=== PATIENT | male | born 1930 | race Caucasian/White ===

== ENCOUNTER 2017-04-30 07:51 | Inpatient (IN) | payer MEDICARE, MEDICAID ==
[~2017-04-30] VITALS: Ht 188 cm; Wt 84.8 kg
[~2017-04-30 07:51] MED LIST: FERR-63 PO; GABA-531 PO; TAMS0.4C31 PO; TRIA1CAP2 PO; VITAMIN
[2017-04-30] MEDS ORDERED: INSULIN (07:54)
[2017-04-30] MEDS ORDERED: COR3 PO (07:54)
[2017-04-30] MEDS ORDERED: GABA300C PO (07:54)
[2017-04-30 09:16] LABS: BASOPHILS % 1.1 % (0.0-2.0); EOSINOPHILS % 4.3 % (0.0-5.0); HEMATOCRIT. 38.2 % (42.0-52.0); HEMOGLOBIN. 12.4 g/dL (14.0-18.0); LYMPHOCYTES % 16.6 % (20.0-50.0); MEAN CORPUSCULAR HEMOGLOBIN 26.9 pg (28.0-32.0); MEAN CORPUSCULAR VOLUME 82.4 fL (80.0-94.0); MEAN PLATELET VOLUME 7.8 fl (7.4-10.4); MONOCYTES % 11.9 % (2.0-8.0); NEUTROPHILS % 66.1 % (40.0-76.0); PLATELET 419 x1000/uL (130-400); RED BLOOD CELL COUNT 4.63 mill/uL (4.7-6.1); RED CELL DISTRIBUTION WIDTH 15.3 % (11.6-14.6)
[2017-04-30 09:25] LABS: INR 1.2; PROTHROMBIN TIME 12.1 sec
[2017-04-30 09:32] LABS: CARBON DIOXIDE 31 mEq/L (21-32); CHLORIDE 96 mEq/L (98-107)
[2017-04-30] MEDS ORDERED: ACETAMINOPHEN 650MG/20.3ML UDC GT PRN (13:00)
[2017-04-30] MEDS ORDERED: ONDANSETRON HCL 4MG/2ML VIAL IV PRN (13:00)
[2017-04-30] MEDS ORDERED: HYDROCODONE/ACETAMINOPHEN 5/325MG TABLET PO PRN (13:00)
[2017-04-30] MEDS ORDERED: DOCUSATE SODIUM 100MG CAPSULE PO PRN (13:00)
[2017-04-30] MEDS ORDERED: IPRATROPIUM/ALBUTEROL 0.5-3(2.5)MG/3ML NEB INH PRN (13:00)
[2017-04-30] MEDS ORDERED: INSULIN SLIDING (13:21)
[2017-04-30] MEDS ORDERED: MULT-1146 PO (13:24)
[2017-04-30] MEDS ORDERED: MAGN400O4 PO (13:24)
[2017-04-30] MEDS ORDERED: CEPH-569 PO (13:24)
[2017-04-30] MEDS ORDERED: ACET-2178 PO (13:31)
[2017-04-30] MEDS ORDERED: DOCU-155 RC (13:31)
[2017-04-30] MEDS ORDERED: SULF1TAB48 PO (13:31)
[2017-04-30] MEDS ORDERED: SOD133EN RC (13:31)
[2017-04-30] MEDS ORDERED: ALBU2.5V13 NEB (13:31)
[2017-04-30 14:09] LABS: CLARITY URINE TURBID (CLEAR); COLOR URINE YELLOW (YELLOW); GLUCOSE URINE NEGATIVE (NEGATIVE); KETONES URINE NEGATIVE (NEGATIVE); LEUKOCYTE ESTERASE URINE NEGATIVE (NEGATIVE); NITRITE URINE NEGATIVE (NEGATIVE); OCCULT BLOOD URINE NEGATIVE (NEGATIVE); PH URINE 7.5 (4.5-8.0); PROTEIN URINE NEGATIVE (NEGATIVE); SPECIFIC GRAVITY URINE 1.015 (1.005-1.030)
[2017-04-30 15:30] VITALS: BP 102/84
[2017-04-30 16:00] VITALS: BP 98/64
[2017-04-30] MEDS ORDERED: DILTIAZEM HCL 5MG/ML 5ML VIAL IV PRN (16:15)
[2017-04-30] MEDS: ENOXAPARIN 80MG/0.8ML SYR SUBCUT SCH (16:30)
[2017-04-30] MEDS: CARVEDILOL 3.125 MG TABLET PO SCH (17:00)
[2017-04-30] MEDS ORDERED: BISACODYL 10MG SUPP PR PRN (17:15)
[2017-04-30] MEDS ORDERED: ACETAMINOPHEN 325MG TABLET PO PRN ×2 (17:15)
[2017-04-30] MEDS ORDERED: DEXTROSE 50% WATER 50ML SYRINGE IV PRN (17:15)
[2017-04-30] MEDS ORDERED: MAGNESIUM HYDROXIDE 400MG/5ML 30ML UDC PO PRN (17:15)
[2017-04-30] MEDS: INSULIN LISPRO 100 UNITS/ML SUBCUT SCH ×2 (18:10→20:47)
[2017-04-30 20:00] VITALS: BP 100/60
[2017-04-30] MEDS: BLOOD SUGAR DIAGNOSTIC STRIP TEST SCH (20:47)
[2017-04-30] MEDS ORDERED: ZOLPIDEM TARTRATE 5MG TABLET PO PRN (21:00)
[2017-04-30] MEDS: ALBUTEROL (0.083%) 2.5MG/3ML NEB HHN SCH (23:47)
[2017-05-01] VITALS: BP 98/56
[2017-05-01] MEDS: ALBUTEROL (0.083%) 2.5MG/3ML NEB HHN SCH ×3 (03:35→20:57)
[2017-05-01 04:00] VITALS: BP 98/63
[2017-05-01] MEDS: OMEPRAZOLE 20MG CAPSULE EXTENDED RELEASE PO SCH (05:59)
[2017-05-01] MEDS: ENOXAPARIN 80MG/0.8ML SYR SUBCUT SCH (06:00)
[2017-05-01] MEDS: INSULIN LISPRO 100 UNITS/ML SUBCUT SCH ×4 (06:03→21:00)
[2017-05-01] MEDS: BLOOD SUGAR DIAGNOSTIC STRIP TEST SCH ×4 (06:03→20:58)
[2017-05-01 07:09] LABS: BASOPHILS % 1.2 % (0.0-2.0); EOSINOPHILS % 5.3 % (0.0-5.0); HEMATOCRIT. 36.3 % (42.0-52.0); HEMOGLOBIN. 12.2 g/dL (14.0-18.0); MEAN CORPUSCULAR HEMOGLOBIN 27.5 pg (28.0-32.0); MEAN CORPUSCULAR VOLUME 81.8 fL (80.0-94.0); MEAN PLATELET VOLUME 8.2 fl (7.4-10.4); NEUTROPHILS % 56.5 % (40.0-76.0); PLATELET 399 x1000/uL (130-400); RED BLOOD CELL COUNT 4.44 mill/uL (4.7-6.1); RED CELL DISTRIBUTION WIDTH 15.4 % (11.6-14.6)
[2017-05-01 08:00] VITALS: BP 114/64
[2017-05-01] MEDS ORDERED: ACETAMINOPHEN 325MG TABLET PO PRN (08:15)
[2017-05-01] MEDS ORDERED: NA PHOS,M-B/NA PHOS,DI-BA ENEMA 118ML PR NR (10:00)
[2017-05-01] MEDS ORDERED: LACTULOSE 20G/30ML UDC PO NR (10:00)
[2017-05-01] MEDS: POLYVINYL ALCOHOL OPHTH DROPS 15ML BOTHEYE SCH ×2 (10:01→17:23)
[2017-05-01] MEDS: CARVEDILOL 3.125 MG TABLET PO SCH ×2 (10:02→17:00)
[2017-05-01] MEDS: ASCORBIC ACID 500 MG TABLET PO SCH (10:02)
[2017-05-01] MEDS: MULTIVITAMINS,THER W-MINERALS TABLET PO SCH (10:02)
[2017-05-01] MEDS: ZINC SULFATE 220 MG ( 50 ) CAPSULE PO SCH (10:02)
[2017-05-01] MEDS: GABAPENTIN 300MG CAPSULE PO SCH (10:02)
[2017-05-01 10:07] LABS: CARBON DIOXIDE 28 mEq/L (21-32); CHLORIDE 98 mEq/L (98-107)
[2017-05-01 12:00] VITALS: BP 103/52
[2017-05-01 15:55] VITALS: BP 100/63
[2017-05-01] MEDS ORDERED: NA PHOS,M-B/NA PHOS,DI-BA ENEMA 118ML PR PRN (18:00)
[2017-05-01 20:00] VITALS: BP 125/77
[2017-05-02] VITALS: BP 127/77
[2017-05-02] MEDS: ALBUTEROL (0.083%) 2.5MG/3ML NEB HHN SCH ×6 (00:36→20:25)
[2017-05-02 04:00] VITALS: BP 102/69
[2017-05-02] MEDS: BLOOD SUGAR DIAGNOSTIC STRIP TEST SCH ×4 (06:21→20:32)
[2017-05-02] MEDS: ENOXAPARIN 80MG/0.8ML SYR SUBCUT SCH ×2 (06:22→19:04)
[2017-05-02] MEDS: OMEPRAZOLE 20MG CAPSULE EXTENDED RELEASE PO SCH (06:22)
[2017-05-02] MEDS: INSULIN LISPRO 100 UNITS/ML SUBCUT SCH ×4 (06:30→20:32)
[2017-05-02 07:31] LABS: BASOPHILS % 1.3 % (0.0-2.0); EOSINOPHILS % 5.9 % (0.0-5.0); HEMATOCRIT. 36.5 % (42.0-52.0); LYMPHOCYTES % 22.3 % (20.0-50.0); MEAN CORPUSCULAR HEMOGLOBIN 27.1 pg (28.0-32.0); MEAN CORPUSCULAR VOLUME 82.3 fL (80.0-94.0); MEAN PLATELET VOLUME 7.8 fl (7.4-10.4); MONOCYTES % 14.4 % (2.0-8.0); NEUTROPHILS % 56.1 % (40.0-76.0); PLATELET 390 x1000/uL (130-400); RED BLOOD CELL COUNT 4.43 mill/uL (4.7-6.1); RED CELL DISTRIBUTION WIDTH 15.4 % (11.6-14.6)
[2017-05-02 07:37] VITALS: BP 120/60
[2017-05-02 07:54] LABS: CARBON DIOXIDE 30 mEq/L (21-32); CHLORIDE 97 mEq/L (98-107); TOTAL IRON BINDING CAPACITY 214 ug/dL (250-450)
[2017-05-02] MEDS: ASCORBIC ACID 500 MG TABLET PO SCH (09:47)
[2017-05-02] MEDS: GABAPENTIN 300MG CAPSULE PO SCH (09:47)
[2017-05-02] MEDS: CARVEDILOL 3.125 MG TABLET PO SCH ×2 (09:47→17:00)
[2017-05-02] MEDS: MULTIVITAMINS,THER W-MINERALS TABLET PO SCH (09:47)
[2017-05-02] MEDS: ZINC SULFATE 220 MG ( 50 ) CAPSULE PO SCH (09:47)
[2017-05-02] MEDS: POLYVINYL ALCOHOL OPHTH DROPS 15ML BOTHEYE SCH ×2 (09:47→17:59)
[2017-05-02 12:00] VITALS: BP 95/50
[2017-05-02] MEDS ORDERED: LIDOCAINE HCL 1% 20ML VIAL (Pyxis) INJ INFIL SCH (12:45)
[2017-05-02] MEDS: FERROUS SULFATE 300MG/5ML UDC PO SCH ×2 (13:22→17:59)
[2017-05-02 16:39] VITALS: BP 92/49
[2017-05-02 20:00] VITALS: BP 97/58
[2017-05-03] VITALS: BP 135/88
[2017-05-03] MEDS: ALBUTEROL (0.083%) 2.5MG/3ML NEB HHN SCH ×6 (00:53→20:51)
[2017-05-03 04:00] VITALS: BP 103/55
[2017-05-03] MEDS: INSULIN LISPRO 100 UNITS/ML SUBCUT SCH ×4 (06:20→21:00)
[2017-05-03] MEDS: BLOOD SUGAR DIAGNOSTIC STRIP TEST SCH ×4 (06:20→21:12)
[2017-05-03] MEDS: ENOXAPARIN 80MG/0.8ML SYR SUBCUT SCH ×2 (06:32→17:00)
[2017-05-03 08:00] VITALS: BP 101/62
[2017-05-03] MEDS: CARVEDILOL 3.125 MG TABLET PO SCH ×2 (08:51→16:57)
[2017-05-03] MEDS: ASCORBIC ACID 500 MG TABLET PO SCH (09:01)
[2017-05-03] MEDS: FAMOTIDINE 20MG TABLET PO SCH ×2 (09:01→17:00)
[2017-05-03] MEDS: GABAPENTIN 300MG CAPSULE PO SCH (09:01)
[2017-05-03] MEDS: FERROUS SULFATE 300MG/5ML UDC PO SCH ×3 (09:01→17:00)
[2017-05-03] MEDS: MULTIVITAMINS,THER W-MINERALS TABLET PO SCH (09:01)
[2017-05-03] MEDS: ZINC SULFATE 220 MG ( 50 ) CAPSULE PO SCH (09:01)
[2017-05-03] MEDS: POLYVINYL ALCOHOL OPHTH DROPS 15ML BOTHEYE SCH ×2 (09:02→17:00)
[2017-05-03] MEDS ORDERED: LACTULOSE 20G/30ML UDC PO NR (10:30)
[2017-05-03 12:00] VITALS: BP 106/61
[2017-05-03 16:00] VITALS: BP 107/70
[2017-05-03] MEDS: DOCUSATE SODIUM 100MG CAPSULE PO SCH (17:00)
[2017-05-03 20:00] VITALS: BP 121/74
[2017-05-04] VITALS: BP 115/80
[2017-05-04] MEDS: ALBUTEROL (0.083%) 2.5MG/3ML NEB HHN SCH ×4 (00:50→12:00)
[2017-05-04 04:00] VITALS: BP 103/68
[2017-05-04] MEDS: ENOXAPARIN 80MG/0.8ML SYR SUBCUT SCH (06:00)
[2017-05-04] MEDS: BLOOD SUGAR DIAGNOSTIC STRIP TEST SCH ×2 (07:08→12:03)
[2017-05-04] MEDS: INSULIN LISPRO 100 UNITS/ML SUBCUT SCH ×2 (07:08→12:16)
[2017-05-04 07:13] LABS: HEMATOCRIT. 36.3 % (42.0-52.0); HEMOGLOBIN. 12.1 g/dL (14.0-18.0); MEAN CORPUSCULAR HEMOGLOBIN 27.6 pg (28.0-32.0); MEAN CORPUSCULAR VOLUME 82.5 fL (80.0-94.0); PLATELET 427 x1000/uL (130-400); RED CELL DISTRIBUTION WIDTH 15.7 % (11.6-14.6)
[2017-05-04 08:00] VITALS: BP 100/67
[2017-05-04 08:09] LABS: CARBON DIOXIDE 29 mEq/L (21-32); CHLORIDE 96 mEq/L (98-107)
[2017-05-04] MEDS: CARVEDILOL 3.125 MG TABLET PO SCH (08:42)
[2017-05-04] MEDS: DOCUSATE SODIUM 100MG CAPSULE PO SCH (08:47)
[2017-05-04] MEDS: MULTIVITAMINS,THER W-MINERALS TABLET PO SCH (08:47)
[2017-05-04] MEDS: FAMOTIDINE 20MG TABLET PO SCH (08:47)
[2017-05-04] MEDS: GABAPENTIN 300MG CAPSULE PO SCH (08:47)
[2017-05-04] MEDS: ASCORBIC ACID 500 MG TABLET PO SCH (08:47)
[2017-05-04] MEDS: ZINC SULFATE 220 MG ( 50 ) CAPSULE PO SCH (08:47)
[2017-05-04] MEDS: FERROUS SULFATE 300MG/5ML UDC PO SCH ×2 (08:47→12:15)
[2017-05-04] MEDS: POLYVINYL ALCOHOL OPHTH DROPS 15ML BOTHEYE SCH (08:51)
[2017-05-04 12:00] VITALS: BP 122/71
[2017-05-04 12:52] VITALS: BP 122/71
[2017-05-04 15:57] LABS: PLATELET ESTIMATE SLIGHTLY INCREASED
[2017-05-04 16:00] VITALS: BP 101/92
[2017-05-04] MEDS ORDERED: RIVAROXABAN 15 MG TABLET PO SCH (17:00)
== END 2017-05-04 17:00 | DRG 593 ==
LOC: ER 08:09 → 8WST 11:08 → EDBEDREQSVC 11:58 → EDBEDREQ 11:58 → ENRESERV 13:42 → 8WST 16:03
PROVIDERS: ADMIT Family Medicine Adult Medicine; ATTEND Family Medicine Adult Medicine
DX: L89.152 Pressure ulcer of sacral region, stage 2 (principal); E87.1 Hypo-osmolality and hyponatremia; E44.0 Moderate protein-calorie malnutrition; I50.30 Unspecified diastolic (congestive) heart failure; R65.10 Systemic inflammatory response syndrome (SIRS) of non-infectious origin without acute organ dysfunction; L08.9 Local infection of the skin and subcutaneous tissue, unspecified; D50.9 Iron deficiency anemia, unspecified; E11.51 Type 2 diabetes mellitus with diabetic peripheral angiopathy without gangrene; M81.0 Age-related osteoporosis without current pathological fracture; I11.0 Hypertensive heart disease with heart failure; Z53.29 Procedure and treatment not carried out because of patient's decision for other reasons; I48.2 Chronic atrial fibrillation; Z88.0 Allergy status to penicillin; Z68.24 Body mass index [BMI] 24.0-24.9, adult; Z79.899 Other long term (current) drug therapy; Z79.4 Long term (current) use of insulin; Z79.01 Long term (current) use of anticoagulants
CPT/HCPCS: 36415; 72195; 80048; 80053; 81001; 82962; 83540; 83550; 83735; 85025; 85610; 85730; 87086; 93005; 93970; 94640; 99285; A6261; J1650; J1815; J3490; J7611; J7620

== ENCOUNTER 2017-05-21 14:05 | Inpatient (IN) | payer MEDICARE, MEDICAID ==
[~2017-05-21] VITALS: Ht 182.9 cm; Wt 86.7 kg
[~2017-05-21 14:05] MED LIST changes: +ACET-2178 PO; +ALBU2.5V13 NEB; +CEPH-569 PO; +COR3 PO; +DOCU-155 RC; -FERR-63 PO; -GABA-531 PO; +GABA300C PO; +INSULIN SLIDING; +MAGN400O4 PO; +MULT-1146 PO; +SOD133EN RC; +SULF1TAB48 PO; -TAMS0.4C31 PO; -TRIA1CAP2 PO; -VITAMIN
[2017-05-21] MEDS ORDERED: VANCOMYCIN 1 G PREMIX 200 ML IV SCH (16:15)
[2017-05-21] MEDS ORDERED: LEVOFLOXACIN 750MG PREMIX 150 ML IV ONE (16:15)
[2017-05-21 16:27] LABS: BASOPHILS % 1.1 % (0.0-2.0); EOSINOPHILS % 4.7 % (0.0-5.0); HEMATOCRIT. 38.7 % (42.0-52.0); HEMOGLOBIN. 12.8 g/dL (14.0-18.0); LYMPHOCYTES % 19.1 % (20.0-50.0); MEAN CORPUSCULAR HEMOGLOBIN 27.3 pg (28.0-32.0); MEAN CORPUSCULAR VOLUME 82.4 fL (80.0-94.0); MEAN PLATELET VOLUME 7.8 fl (7.4-10.4); MONOCYTES % 13.8 % (2.0-8.0); NEUTROPHILS % 61.3 % (40.0-76.0); PLATELET 386 x1000/uL (130-400); RED BLOOD CELL COUNT 4.69 mill/uL (4.7-6.1); RED CELL DISTRIBUTION WIDTH 16.2 % (11.6-14.6)
[2017-05-21 16:30] LABS: INR 1.1; PROTHROMBIN TIME 11.5 sec
[2017-05-21 16:42] LABS: CARBON DIOXIDE 32 mEq/L (21-32); CHLORIDE 97 mEq/L (98-107); TROPONIN I < 0.02 ng/mL (0.00-0.04)
[2017-05-21] MEDS ORDERED: ACETAMINOPHEN 325MG TABLET PO PRN (17:45)
[2017-05-21] MEDS ORDERED: IPRATROPIUM/ALBUTEROL 0.5-3(2.5)MG/3ML NEB INH PRN (17:45)
[2017-05-21] MEDS ORDERED: DOCUSATE SODIUM 100MG CAPSULE PO PRN (17:45)
[2017-05-21] MEDS ORDERED: ONDANSETRON HCL 4MG/2ML VIAL IV PRN (17:45)
[2017-05-21] MEDS ORDERED: HYDROCODONE/ACETAMINOPHEN 5/325MG TABLET PO PRN (17:45)
[2017-05-21] MEDS ORDERED: MORPHINE SULFATE 2 MG/ML CPJ (NOT FOR IM USE) IV PRN (17:45)
[2017-05-21 18:15] LABS: CLARITY URINE CLEAR (CLEAR); COLOR URINE YELLOW (YELLOW); GLUCOSE URINE NEGATIVE (NEGATIVE); KETONES URINE NEGATIVE (NEGATIVE); LEUKOCYTE ESTERASE URINE NEGATIVE (NEGATIVE); NITRITE URINE NEGATIVE (NEGATIVE); OCCULT BLOOD URINE NEGATIVE (NEGATIVE); PH URINE 5.5 (4.5-8.0); PROTEIN URINE NEGATIVE (NEGATIVE); SPECIFIC GRAVITY URINE 1.015 (1.005-1.030)
[2017-05-21] MEDS ORDERED: ZOLPIDEM TARTRATE 5MG TABLET PO PRN (21:00)
[2017-05-21 22:03] VITALS: BP 110/65
[2017-05-21] MEDS ORDERED: ENOXAPARIN 40MG/0.4ML SYR SUBCUT SCH (22:30)
[2017-05-22] VITALS (12 sets, daily range): BP systolic 90–134; BP diastolic 49–72
[2017-05-22] MEDS ORDERED: ACETAMINOPHEN 325MG TABLET PO PRN (01:00)
[2017-05-22] MEDS ORDERED: ALBUTEROL (0.083%) 2.5MG/3ML NEB INH PRN (01:00)
[2017-05-22] MEDS ORDERED: BISACODYL 10MG SUPP PR PRN (01:00)
[2017-05-22] MEDS ORDERED: CEPHALEXIN 500MG CAPSULE PO SCH (01:00)
[2017-05-22] MEDS ORDERED: DEXTROSE 50% WATER 50ML SYRINGE IV PRN (01:30)
[2017-05-22 07:15] LABS: EOSINOPHILS % 5.1 % (0.0-5.0); HEMATOCRIT. 36.6 % (42.0-52.0); HEMOGLOBIN. 12.1 g/dL (14.0-18.0); LYMPHOCYTES % 19.4 % (20.0-50.0); MEAN CORPUSCULAR VOLUME 82.1 fL (80.0-94.0); MEAN PLATELET VOLUME 8.3 fl (7.4-10.4); NEUTROPHILS % 61.5 % (40.0-76.0); PLATELET 353 x1000/uL (130-400); RED BLOOD CELL COUNT 4.46 mill/uL (4.7-6.1); RED CELL DISTRIBUTION WIDTH 16.4 % (11.6-14.6)
[2017-05-22] MEDS: VANCOMYCIN 1500MG in DEXTROSE 5% WATER 250ML IV SCH (07:21)
[2017-05-22 07:22] LABS: CARBON DIOXIDE 29 mEq/L (21-32); CHLORIDE 96 mEq/L (98-107)
[2017-05-22] MEDS ORDERED: BLOOD SUGAR DIAGNOSTIC STRIP TEST SCH (07:30)
[2017-05-22] MEDS: INSULIN LISPRO 100 UNITS/ML SUBCUT SCH ×4 (08:00→20:34)
[2017-05-22] MEDS: MAGNESIUM HYDROXIDE 400MG/5ML 30ML UDC PO SCH (08:04)
[2017-05-22] MEDS: OMEPRAZOLE 20MG CAPSULE EXTENDED RELEASE PO SCH (08:04)
[2017-05-22] MEDS: BLOOD SUGAR DIAGNOSTIC STRIP TEST SCH ×4 (08:04→20:35)
[2017-05-22] MEDS: MULTIVITAMINS,THER W-MINERALS TABLET PO SCH (08:04)
[2017-05-22] MEDS: CARVEDILOL 3.125 MG TABLET PO SCH ×2 (08:05→20:24)
[2017-05-22] MEDS: GABAPENTIN 300MG CAPSULE PO SCH (08:07)
[2017-05-22] MEDS ORDERED: SULFAMETHOXAZOLE/TRIMETHOPRIM 800/160MG TABLET PO SCH (09:00)
[2017-05-22] MEDS ORDERED: LEVOFLOXACIN 500MG PREMIX 100 ML IV SCH (14:00)
[2017-05-22] MEDS: ENOXAPARIN 80MG/0.8ML SYR SUBCUT SCH (16:07)
[2017-05-22] MEDS: SODIUM HYPOCHLORITE 0.125% 473ML SOLUTION TOP SCH (20:24)
[2017-05-23] VITALS (11 sets, daily range): BP systolic 91–114; BP diastolic 53–72
[2017-05-23] MEDS: VANCOMYCIN 1500MG in DEXTROSE 5% WATER 250ML IV SCH (00:13)
[2017-05-23] MEDS: ENOXAPARIN 80MG/0.8ML SYR SUBCUT SCH (02:50)
[2017-05-23] MEDS: OMEPRAZOLE 20MG CAPSULE EXTENDED RELEASE PO SCH (06:37)
[2017-05-23] MEDS: INSULIN LISPRO 100 UNITS/ML SUBCUT SCH ×3 (08:00→18:00)
[2017-05-23] MEDS: BLOOD SUGAR DIAGNOSTIC STRIP TEST SCH ×3 (08:07→18:12)
[2017-05-23] MEDS: GABAPENTIN 300MG CAPSULE PO SCH (08:15)
[2017-05-23] MEDS: CARVEDILOL 3.125 MG TABLET PO SCH (08:15)
[2017-05-23] MEDS: MULTIVITAMINS,THER W-MINERALS TABLET PO SCH (08:15)
[2017-05-23] MEDS: MAGNESIUM HYDROXIDE 400MG/5ML 30ML UDC PO SCH (08:15)
[2017-05-23] MEDS ORDERED: FUROSEMIDE 40MG/4ML VIAL IVP SCH (10:30)
[2017-05-23 11:30] LABS: BASOPHILS % 0.7 % (0.0-2.0); EOSINOPHILS % 4.3 % (0.0-5.0); HEMATOCRIT. 38.1 % (42.0-52.0); HEMOGLOBIN. 12.5 g/dL (14.0-18.0); LYMPHOCYTES % 20.7 % (20.0-50.0); MEAN CORPUSCULAR HEMOGLOBIN 27.1 pg (28.0-32.0); MEAN CORPUSCULAR VOLUME 82.9 fL (80.0-94.0); NEUTROPHILS % 62.3 % (40.0-76.0); PLATELET 338 x1000/uL (130-400); RED CELL DISTRIBUTION WIDTH 16.6 % (11.6-14.6)
[2017-05-23 11:46] LABS: CARBON DIOXIDE 29 mEq/L (21-32); CHLORIDE 98 mEq/L (98-107)
[2017-05-23] MEDS ORDERED: LACTULOSE 20G/30ML UDC PO NR (14:00)
[2017-05-23] MEDS ORDERED: LEVOFLOXACIN 500MG PREMIX 100 ML IV SCH (16:00)
[2017-05-23] MEDS: SODIUM HYPOCHLORITE 0.125% 473ML SOLUTION TOP SCH (16:26)
[2017-05-23] MEDS ORDERED: DOCUSATE SODIUM 100MG CAPSULE PO SCH (17:00)
[2017-05-23] MEDS ORDERED: RIVAROXABAN 15 MG TABLET PO SCH (17:00)
== END 2017-05-23 18:30 | DRG 871 ==
LOC: ER 14:30 → 5EST 17:44 → EDBEDREQ 17:46 → EDBEDREQSVC 17:46 → EDBEDREQTM 17:46 → EDBEDREQSVC 17:51 → ENRESERV 20:38
PROVIDERS: ADMIT Family Medicine Adult Medicine; ATTEND Family Medicine Adult Medicine
DX: A41.9 Sepsis, unspecified organism (principal); E43 Unspecified severe protein-calorie malnutrition; I50.33 Acute on chronic diastolic (congestive) heart failure; G93.40 Encephalopathy, unspecified; L89.154 Pressure ulcer of sacral region, stage 4; E87.1 Hypo-osmolality and hyponatremia; I48.1 Persistent atrial fibrillation; D50.9 Iron deficiency anemia, unspecified; E11.9 Type 2 diabetes mellitus without complications; I11.0 Hypertensive heart disease with heart failure; Z79.01 Long term (current) use of anticoagulants; Z88.0 Allergy status to penicillin; Z79.1 Long term (current) use of non-steroidal anti-inflammatories (NSAID); Z79.899 Other long term (current) drug therapy; Z79.51 Long term (current) use of inhaled steroids; Z79.4 Long term (current) use of insulin; Z68.25 Body mass index [BMI] 25.0-25.9, adult
CPT/HCPCS: 36415; 71010; 72195; 80048; 80053; 81003; 82962; 83605; 83735; 83880; 84484; 85025; 85610; 85651; 86140; 87040; 87070; 87077; 87086; 87186; 87205; 93005; 96365; 96366; 96368; 99285; J1650; J1815; J1940; J1956; J3370; J7040; J7060